=== PATIENT | male | born 1995 | race Caucasian/White ===

== ENCOUNTER 2016-10-25 12:32 | Emergency (ER) | payer OTHER ==
[~2016-10-25] VITALS: Ht 180.3 cm; Wt 180.0 kg
[2016-10-25 12:53] VITALS: BP 130/68; PULSE 102; RESP 16; O2SAT 97
--- NOTE | 2016-10-25 13:18 | ED.REPORT ---
HPI-Dental/Mouth Prob Date of Service Oct 25, 2016 ED Provider: Jesus Manuel Santizo PA-C Jeff is an otherwise healthy 21-year-old man who presents with a chief complaint of tooth pain. Patient states that the pain began approximately 2 or 3 days ago he first noticed it after brushing his teeth. He locates the pain above teeth 7 through 9. He was seen at urgent care yesterday and diagnosed with thrush. He states that he started taking Chlortrimazole he was prescribed and noticed increasing swelling in his face as well as increasing pain and drooling. He presented to the emergency department in, was given Benadryl and pain medication and discharged. Reports the pain has been steadily increasing over 2-3 days Nursing Notes Stated Complaint: MOUTH PAIN Chief Complaint: Dental Nursing Notes Reviewed: Yes Allergies: Coded Allergies: clofarabine (Verified Allergy, Intermediate, 09/20/12) Penicillins (Unverified Allergy, Unknown, 10/25/16) clotrimazole (Unverified Allergy, Unknown, 10/25/16) Scheduled Clindamycin (Clindamycin) 300 Mg Capsule 300 MG PO QID Scheduled PRN oxyCODONE (oxyCODONE) 5 Mg Capsule 5 MG PO Q4H PRN PRN For Pain General Time Seen by MD: 13:02 Chief Complaint Tooth pain Past Medical History Past Medical History Notes: Denies Review of Systems Negative unless stated otherwise history of present illness Physical Exam General: Well appearing, well developed, well nourished, mild distress. Head: Atraumatic, normocephalic. No mastoid tenderness. Eyes: No scleral icterus or injection. No discharge. PERRL. Vision grossly intact. Ears: Pinna and tragus nontender with manipulation. External auditory canal patent, atraumatic and without discharge. Tympanic membrane mtz, shiny and translucent without fluid, bulging, retraction or perforation. Hearing grossly intact. Nose: Symmetrical, nares patent without discharge. No frontal or maxillary sinus tenderness. Mouth/pharynx: Tooth 7 small carry near gumline. Teeth 8, 9 and 10 are a bridge. 1 cm area of fluctuance and swelling midline anterior maxillary gum. Significant edema throughout upper lip. Tonsils 2+ and symmetrical, uvula midline. Pharynx noninjected, no cobblestoning or discharge. Voice clear. No pooling of secretions. Geographic tongue noted. Neck: No tenderness or lymphadenopathy. Trachea midline. Respiratory: Regular rate and rhythm. No stridor. Breath sounds present, clear to auscultation and equal bilaterally. Cardiovascular: Regular rate and rhythm, without murmur, gallop or rub. Gastrointestinal: Abdomen flat and non-tender without guarding or rebound. Bowel sounds normoactive. Skin: Warm and dry. Neurological: Grossly nonfocal. Psychological: Alert and oriented. Speech appropriate, linear and logical. Behavior appropriate. Initial Vital Signs Vital Signs (First) Date Time Temp Pulse Resp B/P Pulse Ox O2 Delivery O2 Flow Rate FiO2 10/25/16 12:53 37.6 102 16 130/68 97 Room Air Initial VS: Reviewed, Vital signs abnormal (mild tachycardia) Procedures Incision & Drainage Abscess I & D Abscess: Midline anterior maxillary gum Procedure Performed by: Allied health pract Consent / Setup / Site Prep: Informed consent provided, Consent from patient , Hand hygiene observed Local Anesthesia: Bupivacaine 0.5%, 2cc Incised Abscess with Scalpel: #11 Pus Drained: Medium, Purulent discharge, Bloody Post-Procedure / Complications: No complications, Condition improved, Tolerated procedure well, Patient stable Re-Eval/Medical Decision Med Decision/Clinical Course I discussed this case with Dr. Glover who met with and examined the patient. Otherwise healthy 21-year-old male presents with a three-day history of tooth pain, facial swelling. he was seen in urgent care and diagnosed with thrush and a dental carry. Patient reports no immunocompromise, diabetes, HIV, immunosuppression. Took 1 dose of Chlortrimazole, awoke shortly thereafter with facial swelling and increasing pain. He believes this is allergic reaction. Seen at the [place] emergency Department, given IV Benadryl and pain medications. Presents to our department due to continuing facial swelling and pain. Physical exam reveals dental beatriz at the gumline of tooth 7. Has a 1 cm area of fluctuance in the anterior midline maxillary gums. This appears to be a dental abscess. Patient does not appear septic. Drained with an 11 blade, patient tolerated the procedure well and reports improving pain. Prescribed 300 mg clindamycin 4 times a day 7 days and small amount of oxycodone. Advised dental follow-up, primary care follow-up and gave return precautions. Discharge & Departure Primary Impression: Dental abscess Disposition: Home Discharge Condition All VS Reviewed: Yes Condition: Stable Patient Instructions: Dental Abscess (ED) Additional Instructions: Evaluation in the emergency Department for tooth pain. History and physical reveals a cavity in the left front tooth adjacent to your bridge, as well as a dental abscess. There is no indication that her facial swelling is causing any difficulty with breathing or swallowing. I lanced the abscess in the emergency department and we got a significant amount of purulent discharge out of it. This should help with your facial swelling and pain. I will write a prescription for antibiotics. Please take all of them as directed. The pain is best treated with 400 mg of ibuprofen (Advil, Motrin) every 6 hours , or 1000 mg of acetaminophen (Tylenol) every 6 hours. These drugs can be taken at the same time for more severe pain. I will also write a prescription for small amount of oxycodone. Please do not drive or drink alcohol within 4 hours of taking this medication. Please follow up with dentist as soon as possible. Please follow up with your primary care provider if your pain and swelling are not improving in the next few days. Return to emergency department for any new or worsening symptoms including increasing swelling, pain, redness, fever, difficulty breathing or difficulty swallowing. Referrals: OTHER,PHYSICIAN [facility] EDSupervising Provider for APC: Jose Glover MD Attending Statement I saw and examined this patient myself with [facility]. I have reviewed the chart and agree with the documentation as recorded by the Midlevel Provider, including the assessment, treatment plan, and the disposition. Jesus Manuel Santizo PA-C Oct 25, 2016 13:17 Jose Glover MD Oct 25, 2016 17:59
[2016-10-25] MEDS ORDERED: HYDROcodone-APAP 5-325 mg Tablet PO ONE (14:05)
[2016-10-25] MEDS ORDERED: OXYC5CAP4 PO (14:16)
[2016-10-25] MEDS ORDERED: CLIN-78 PO (14:16)
[2016-10-25 14:44] VITALS: BP 128/68; PULSE 99; RESP 18; O2SAT 98
== END 2016-10-25 14:44 | disposition home or self-care (01) ==
LOC: SED 12:32 → EDUNIT# 12:32 → SED 14:26
DX: K04.7 Periapical abscess without sinus (principal); Z88.8 Allergy status to other drugs, medicaments and biological substances; Z88.0 Allergy status to penicillin